=== PATIENT | female | born 1970 | race Caucasian/White ===

== ENCOUNTER 2020-02-07 10:53 | Day surgery (SDC) | payer BC ==
--- NOTE | 2020-02-07 08:05 | HP ---
DATE OF SURGERY: 02/07/2020 HISTORY OF PRESENT ILLNESS: The patient is a 49 year old who since back in August or September she had stool urgency after eating, occasional right upper quadrant pain. No blood in the stool. She was told she had gallstones back in 2009 but she also had some non-Hodgkin's lymphoma. She has history of cervical cancer in the past. PAST MEDICAL HISTORY: Anxiety. History of lymphoma. Cervical cancer in the past. PAST SURGICAL HISTORY: Hysterectomy. Tubal in the past. Port for chemo for lymphoma in the past. MEDICATIONS: Sertraline, Xanax. ALLERGIES: SENSITIVE TO TYLENOL COLD AND SINUS. EPINEPRINE WHICH CAUSED TACHYCARDIA AND PALPITATIONS ACCORDING TO THE PATIENT. FAMILY HISTORY: Diabetes. SOCIAL HISTORY: Quit smoking a year or so ago, smoked a pack per day. Denies alcohol abuse. REVIEW OF SYSTEMS: Fourteen systems reviewed. No chest pain or palpitations. Other systems negative or noncontributory as above and per preadmission questionnaire. She had ultrasound show sludge and gallstones. PHYSICAL EXAMINATION: GENERAL: No acute distress. HEENT: Sclerae nonicteric. NECK: No JVD. CHEST: Equal excursion, nonlabored breathing. CVS: Regular rate and rhythm. ABDOMEN: Soft. No peritoneal signs. EXTREMITIES: No significant edema. NEURO: Alert, moving extremities symmetrically. No gross motor deficits noted. PSYCH: Appropriate mood and affect. IMPRESSION: Symptomatic cholelithiasis, acute exacerbation of chronic cholecystitis. I feel the patient will benefit from cholecystectomy. Risks and benefits explained in detail including but not limited to bleeding or infection, risk of trocar injury or hernia, risk of bowel, bladder or blood vessel injury, risk of bile leak, bile duct injury, retained stone or sludge possibly requiring further procedure either open or ERCP, general risk of anesthesia, deep venous thrombosis, pulmonary embolism, pneumonia, perioperative risk of aches, pains, bloating, constipation and/or loose stools possibly even chronic in nature. She also understands may not improve even with cholecystectomy. She also understands possible open procedure. General risk of deep venous thrombosis, pulmonary embolism or pneumonia but not limited to. She agreed with the planned procedure, will proceed with laparoscopic cholecystectomy with possible open as an outpatient.
[~2020-02-07 10:53] MED LIST: DIPRIVAN 200 MG/20 ML IV ONE; Lactated Ringers 1,000 ML IV ONE; Lactated Ringers 1,000 ML IV SCH; MEFOXIN 2 GM PREMIX** 2 GM/50 ML ML IV ONE; MEFOXIN 2 GM PREMIX** 2 GM/50 ML ML IV SCH; SUBLIMAZE 250 MCG/5 ML ONE; Sensorcaine 0.25% 10 ML ONE; Versed 2 MG/2 ML Injection ONE; Zemuron 100 MG/10 ML ONE
[2020-02-07 11:16] LABS: Hematocrit 40.4 % (35-47); Mean Cell Volume 89.4 fl (78-100); Mean Corpuscular Hemoglobin 28.8 pg (26-32); Mean Corpuscular Hgb Concent. 32.2 g/dl (32-36); Mean Platelet Volume 10.5 fl (7.5-11.0); Platelet Count 315 K/mm3 (150-450); Red Blood Count 4.52 M/mm3 (4.1-5.4); Red Cell Distribution Width 14.9 % (11.5-14.0); White Blood Count 6.8 K/mm3 (4.0-10.5)
[2020-02-07 11:38] LABS: ANION GAP 8.6 MEQ/L (5-15); BLOOD UREA NITROGEN 10 mg/dL (7-17); CHLORIDE 107 mmol/L (98-107); Calcium 9.4 mg/dL (8.4-10.2); Carbon Dioxide 26 mmol/L (22-30); Creatinine 1 0.85 mg/dL (0.52-1.04); EST GLOMERULAR FILTRATION RATE > 60.0 ML/MIN; Glucose 100 mg/dL (74-106); Potassium 4.3 mmol/L (3.5-5.1); SODIUM 137 mmol/L (137-145)
[2020-02-07] MEDS ORDERED: PHENYLEPHRINE HCL ONE (13:56)
[2020-02-07] MEDS ORDERED: BRIDION 200MG/2ML IV ONE (14:21)
[2020-02-07] MEDS ORDERED: Zofran 4 MG/2 ML VIAL IV PRN (15:43)
[2020-02-07 16:10] VITALS: O2SAT 93
[2020-02-07 16:21] VITALS: BP 121/81; PULSE 64
--- NOTE | 2020-02-08 11:43 | OP ---
SURGERY DATE/TIME: 02/07/2020 1326 PREOPERATIVE DIAGNOSIS: Symptomatic cholelithiasis, acute exacerbation of chronic cholecystitis. POSTOPERATIVE DIAGNOSIS: Acute exacerbation of chronic cholecystitis, cholelithiasis. PROCEDURE: Laparoscopic cholecystectomy. SURGEON: Dr. Jose Victoria. ANESTHESIA: General. ESTIMATED BLOOD LOSS: Minimal. INDICATIONS: As noted above. Risks and benefits explained in detail but not limited to and consent obtained. DESCRIPTION OF PROCEDURE AND FINDINGS: The patient was taken to the operating room. General anesthesia induced. Abdomen prepped and draped in the usual sterile fashion. After official time out and no disagreement with planned procedure, a transverse incision made at the supraumbilical area. Fascia grasped and pulled upward. Veress needle inserted and tested with saline. Pneumoperitoneum accomplished insufflating opening pressure of 0-15. A 5 mm bladeless port and camera inserted right upper quadrant without difficulty followed by 10/11 port placed supraumbilical site and another 5 mm epigastric port and another 5 mm right upper quadrant port. The gallbladder had extensive omental adhesions. Gallbladder was quite distended with some hydrops, had some sludge and stones in it. It took some time but slowly and carefully dissected posterior laterally to anterior fashion. Cystic duct and infundibular junction slowly and carefully well skeletonized as well as main cystic artery isolated until the critical view obtained both anteriorly and posteriorly. Once this was accomplished cystic duct and cystic artery clipped x3 and divided in usual fashion. Gallbladder slowly and carefully dissected free from its dense attachment to the liver bed staying directly on the gallbladder wall clipping additional oozing side branches off the cystic artery as necessary. It should be noted that the gallbladder was quite difficult to manipulate around and required taking Veress needle and 50 cc syringe aspirating 40 cc of hydrops from it making it a little bit easier to grasp. It was still quite stuck to the liver bed. Staying directly on the gallbladder wall slowly and carefully dissected free. One of the graspers tore a small, little pinhole in it. A couple tiny sludge stones were retrieved and passed off. Copious amount of irrigation irrigating clear. There was no visible stone material that could be visualized in this obese patient. Gallbladder is continued to be dissected free from the liver bed. Just prior to releasing from final attachments to the liver bed the liver bed re-inspected. Clips noted in place in cystic duct and cystic artery stumps. No signs of any active bleeding or bile leakage from the liver bed itself. As the liver bed had been quite raw, given her fatty infiltration in the liver, after removing the gallbladder from its final attachments to the anterior edge of the liver, placed in the provided bag from the hospital pulled free and passed off. The port was replaced. Copious amount irrigation accomplished lateral to the liver and subhepatic space irrigating until clear. There was no evidence of any visible stone material. There was no specific vessel to clip or ligate as it had been quite raw with fatty infiltration to the liver. A small piece of Surgicel was left in the gallbladder bed. Copious irrigation irrigating clear. The fascial defect 1011 site was closed with puncture closure device with #1 Vicryl. Pneumoperitoneum decompressed. The wound irrigated out. Skin incision closed with 4-0 Vicryl. Steri-Strips and sterile dressing applied. 0.25% Marcaine local had been injected along the skin incision fascial defect at the beginning of the procedure. There were no immediate complications. There was no family available to discuss the findings with.
== END 2020-02-07 16:20 | disposition home or self-care (01) ==
LOC: SDC 10:53
PROVIDERS: ATTEND Surgery
DX: K80.12 Calculus of gallbladder with acute and chronic cholecystitis without obstruction (principal); Z85.72 Personal history of non-Hodgkin lymphomas; Z85.41 Personal history of malignant neoplasm of cervix uteri; Z79.899 Other long term (current) drug therapy
CPT/HCPCS: 36415; 80048; 85027; 88304; J0694; J2250; J2370; J2405; J2704; J3010

== ENCOUNTER 2022-03-18 19:12 | Emergency (ER) | payer BC ==
[2022-03-18 19:25] VITALS: O2SAT 97
[2022-03-18] MEDS ORDERED: TORAdol 30 mg Injection IM ONE (19:32)
[2022-03-18] MEDS ORDERED: TORAdol 30 mg Injection ONE (19:32)
--- NOTE | 2022-03-18 19:39 | ERPHSYRPT ---
- History of Present Illness Time Seen by Provider: 03/18/22 19:34 Source: patient Exam Limitations: no limitations Patient Subjective Stated Complaint: pt states "My shoulder has been hurting since friday. I don't know what I did to it." Triage Nursing Assessment: pt ambulatory to bed by self, pt alert and oriented x3, skin pwd, pt c/o L shoulder pain since friday where the pain has gotten increasingly worse, pt has been lifting heavy boxes at work and been putting up jayne decorations, Physician History: Patient a 51-year-old female presents to our ED with left upper trapezius pain. Pain has gotten progressively worse over the past 4 days as she has been doing repetitive motion activities at work. Patient has been doing a lot of lifting overhead preparing for [employer]. Pain described as an ache that is localized to the left upper trapezius. Pain worse with abduction and flexion of left shoulder. Palpation to the upper trapezius also reproduces her symptoms. No other injuries reported. No trauma. No neck pain. No upper extremity numbness tingling or weakness. Symptoms are mild to moderate in intensity. Patient voices no other complaints or concerns at this time. Occurred: days ago Method of Injury: other (Repetitive motion) Quality: constant Severity of Pain-Max: moderate Severity of Pain-Current: mild Extremities Pain Location: shoulder: left Modifying Factors: Improves With: other (Lifting left shoulder movement and palpation) Associated Symptoms: none Allergies/Adverse Reactions: chlorpheniramine [From Tylenol Sinus Congestion Pain] Allergy (Verified 03/18/22 19:19) Tightness of Throat dextromethorphan [From Tylenol Cold Multi-Symptom] Allergy (Verified 03/18/22 19:19) Tightness of Throat guaifenesin [From Tylenol Cold Multi-Symptom] Allergy (Verified 03/18/22 19:19) Tightness of Throat phenylephrine [From Tylenol Cold Multi-Symptom] Allergy (Verified 03/18/22 19:19) Tightness of Throat pseudoephedrine [From Tylenol Cold Multi-Symptom] Allergy (Verified 03/18/22 19:19) Tightness of Throat epinephrine Adverse Reaction (Verified 03/18/22 19:19) tachycardia Home Medications: ALPRAZolam [Xanax] 0.5 mg PO TID 01/20/20 [History] Sertraline HCl 50 mg [Zoloft 50 mg Tablet] 25 mg PO DAILY 01/20/20 [History] Atorvastatin Calcium [Lipitor] 10 mg PO DAILY 03/18/22 [History] Hx Tetanus, Diphtheria Vaccination/Date Given: Yes Hx Influenza Vaccination/Date Given: No Hx Pneumococcal Vaccination/Date Given: No Immunizations Up to Date: Yes Travel Risk - International Travel Have you traveled outside of the country in past 3 weeks: No - Coronavirus Screening Are you exhibiting any of the following symptoms?: No Close contact with a COVID-19 positive Pt in past 14-21 Days: No - Vaccine Status Have you recieved a Covid-19 vaccination: No - Review of Systems Constitutional: No Symptoms, No Fever, No Chills Eyes: No Symptoms Ears, Nose, & Throat: No Symptoms Respiratory: No Symptoms, No Cough, No Dyspnea Cardiac: No Symptoms, No Chest Pain, No Edema, No Syncope Abdominal/Gastrointestinal: No Symptoms, No Abdominal Pain, No Nausea, No Vomiting, No Diarrhea Genitourinary Symptoms: No Symptoms, No Dysuria Musculoskeletal: No Symptoms, No Back Pain, No Neck Pain Skin: No Symptoms, No Rash Neurological: No Symptoms, No Dizziness, No Focal Weakness, No Sensory Changes Psychological: No Symptoms Endocrine: No Symptoms Hematologic/Lymphatic: No Symptoms Immunological/Allergic: No Symptoms All Other Systems: Reviewed and Negative - Past Medical History Pertinent Past Medical History: Yes Neurological History: No Pertinent History ENT History: No Pertinent History Cardiac History: No Pertinent History Respiratory History: No Pertinent History Endocrine Medical History: Diabetes Type II Musculoskeletal History: No Pertinent History GI Medical History: No Pertinent History History: No Pertinent History Psycho-Social History: Anxiety, Depression Female Reproductive Disorders: Cervical Cancer Other Medical History: non -hodgkins lymphoma and cervical cancer - Past Surgical History Past Surgical History: Yes Neuro Surgical History: No Pertinent History Cardiac: No Pertinent History Respiratory: No Pertinent History Gastrointestinal: No Pertinent History Musculoskeletal: Other Female Surgical History: Hysterectomy, Tubal Ligation Other Surgical History: carpal tunnel release, port placed and removed, lymph node removed from groin. - Social History Smoking Status: Current every day smoker Exposure to second hand smoke: Yes Drug Use: none Patient Lives Alone: No - Female History Hx Last Menstrual Period: post hysterecomy Hx Now: No - Nursing Vital Signs Nursing Vital Signs: Initial Vital Signs Temperature 97.8 F 03/18/22 19:19 Pulse Rate 82 03/18/22 19:19 Respiratory Rate 16 03/18/22 19:19 Blood Pressure 138/69 03/18/22 19:19 O2 Sat by Pulse Oximetry 97 03/18/22 19:19 Pain Scale Pain Intensity 8 - Physical Exam General Appearance: no apparent distress, alert Eyes, Ears, Nose, Throat Exam: normal ENT inspection, TMs normal, pharynx normal, moist mucous membranes Neck Exam: normal inspection, non-tender, supple, full range of motion Cardiovascular/Respiratory Exam: chest non-tender, normal breath sounds, regular rate/rhythm, no respiratory distress Abdominal Exam: non-tender, soft, No guarding Back Exam: normal inspection, normal range of motion, No vertebral tenderness Shoulder Exam: no evidence of injury, limited ROM (Limited abduction due to pain), soft tissue tenderness, No swelling Elbow/Forearm Exam: normal inspection, non-tender, no evidence of injury Wrist Exam: normal inspection, non-tender, no evidence of injury, normal ROM Hand Exam: normal inspection, non-tender, no evidence of injury, normal ROM Neuro/Tendon Exam: normal sensation, normal motor functions Mental Status Exam: alert, oriented x 3, cooperative Skin Exam: normal color, warm, dry SpO2 Interpretation: normal SpO2: 97 O2 Delivery: Room Air - Course Nursing assessment & vital signs reviewed: Yes Ordered Tests: Medication Summary Generic Name Dose Route Start Last Admin Trade Name Freq PRN Reason Stop Dose Admin Ketorolac Tromethamine 30 mg 03/18/22 19:32 Ketorolac Tromethamine 30 Mg/Ml Inj IM 03/18/22 19:33 STAT ONE - Progress Progress: improved Progress Note: Patient has a left upper trapezius strain. This is due to repetitive motion. No trauma. No indication for x-rays at this time. Will discharge home. Patient received a dose of Toradol in our ED. Patient will also receive a left upper extremity sling. Patient agrees to follow-up with a primary care doctor within 48 hours for evaluation. Portions of this note were created with voice recognition technology. There may be grammatical, spelling, punctuation or sound alike errors 03/18/22 19:37 Counseled pt/family regarding: diagnosis, need for follow-up - Departure Departure Disposition: Home Clinical Impression: Left upper trapezius muscle strain, Repetitive motion injury Condition: Stable Critical Care Time: No Referrals: STEPAN MERCADO NP [Primary Care Provider] - Follow up/PCP as directed Additional Instructions: Discharge/Care Plan MENA PEREZ was seen on 03/18/22 in the Emergency Room. The patient was counseled regarding Diagnosis,Lab results, Imaging studies, need for follow up and when to return to the Emergency Room. Prescriptions given: Discharge Note I have spoken with the patient and/or caregivers. I have explained the patient's condition, diagnosis and treatment plan based on the information available to me at this time. I have answered the patient's and/or caregiver's questions and addressed any concerns. The patient and/or caregivers have as good understanding of the patient's diagnosis, condition and treatment plan as can be expected at this point. The vital signs have been stable. The patient's condition is stable and appropriate for discharge from the emergency department. The patient will pursue further outpatient evaluation with the primary care physician or other designated or consulting physician as outlined in the discharge instructions. The patient and/or caregivers are agreeable to this plan of care and follow-up instructions have been explained in detail. The patient and/or caregivers have received these instruction. The patient/and or caregivers are aware that any significant change in condition or worsening of symptoms shou ld prompt an immediate return to this or the closest emergency department or call 911.
[2022-03-18 19:51] VITALS: BP 131/84; PULSE 80
== END 2022-03-18 19:51 | disposition home or self-care (01) ==
LOC: ED 19:12
DX: S16.1XXA Strain of muscle, fascia and tendon at neck level, initial encounter (principal); X50.3XXA Overexertion from repetitive movements, initial encounter; Y99.0 Civilian activity done for income or pay; E11.9 Type 2 diabetes mellitus without complications; Z79.899 Other long term (current) drug therapy; Z28.310 Unvaccinated for COVID-19; Z72.0 Tobacco use
CPT/HCPCS: 96372; 99283; J1885